=== PATIENT | male | born 1935 | race Caucasian/White ===

== ENCOUNTER 2016-09-26 10:58 | Emergency (ER) | payer OTHER ==
[~2016-09-26] VITALS: Ht 182.9 cm; Wt 147.4 kg
[~2016-09-26 10:58] MED LIST: ATENOLOL25 MG PO; HYDROCHLOROTHIA25 MG PO; ZESTRIL20 MG PO
[2016-09-26 15:05] VITALS: BP 181/79
== END 2016-09-26 15:05 | disposition home or self-care (01) ==
LOC: ED 10:58
DX: R60.0 Localized edema (principal); E66.9 Obesity, unspecified; I10 Essential (primary) hypertension; E78.5 Hyperlipidemia, unspecified; Z86.73 Personal history of transient ischemic attack (TIA), and cerebral infarction without residual deficits
CPT/HCPCS: Q0092

== ENCOUNTER 2016-12-09 08:31 | Emergency (ER) | payer OTHER ==
[~2016-12-09] VITALS: Ht 182.9 cm; Wt 143.3 kg
[2016-12-09 10:48] VITALS: BP 158/65
== END 2016-12-09 12:54 | disposition home or self-care (01) ==
LOC: ED 08:31
DX: L03.113 Cellulitis of right upper limb (principal); I10 Essential (primary) hypertension; Z86.73 Personal history of transient ischemic attack (TIA), and cerebral infarction without residual deficits
CPT/HCPCS: J3490; Q0092

== ENCOUNTER 2017-11-12 11:10 | Inpatient (IN) | payer OTHER ==
[~2017-11-12] VITALS: Ht 180.3 cm; Wt 147.4 kg
[2017-11-12 12:16] LABS: BASOPHIL % 1.1 % (0-2); PLATELET COUNT 230 x10^3mcL (130-400)
[2017-11-12 12:25] LABS: CALCIUM 9.2 mg/dL (8.5-10.1); CHLORIDE SERUM 102 mmol/L (98-107); CREATININE SERUM 1.7 mg/dL (0.7-1.3); GLUCOSE SERUM 118 mg/dL (74-106); SODIUM SERUM 138 mmol/L (136-145)
[2017-11-12 12:26] LABS: RED CELL DISTRIBUTION WIDTH 15.6 % (11.5-14.5)
[2017-11-12 12:29] LABS: ALKALINE PHOSPHATASE 118 U/L (46-116); ALT/SGPT 22 U/L (16-63); AST/SGOT 14 U/L (15-37); BILIRUBIN TOTAL 0.65 mg/dL (0.20-1.00); HDL CHOLESTEROL 40 mg/dL (40-60); LIPASE 209 IU/L (73-393); TOTAL PROTEIN, SERUM 7.7 g/dL (6.4-8.2); TRIGLYCERIDES 123 mg/dL (<150)
[2017-11-12 12:36] LABS: ALBUMIN 2.8 g/dL (3.4-5.0); CHOLESTEROL 214 mg/dL (<200); CHOLESTEROL/HDL RATIO 5.4
[2017-11-12] MEDS ORDERED: ALLOPURINOL100 MG PO (12:59)
[2017-11-12] MEDS ORDERED: HYDROCHLOROTHIA25 MG PO (12:59)
[2017-11-12] MEDS ORDERED: ATENOLOL25 MG PO (12:59)
[2017-11-12] MEDS ORDERED: METFORMIN HYDR500 M1 PO (13:00)
[2017-11-12] MEDS ORDERED: LOTENSIN40 MG PO (13:00)
[2017-11-12] MEDS ORDERED: TAMSULOSIN HYD0.4 M1 PO (13:00)
[2017-11-12 13:10] LABS: FREE T4 1.08 ng/dL (0.76-1.46); FREE THYROXINE INDEX 2.2 ug/dL (1.4-4.5)
[2017-11-12 14:02] LABS: T3 TOTAL 0.8 ng/mL
[2017-11-12 14:18] LABS: microscopic required? NO
[2017-11-12 14:39] VITALS: BP 139/61
[2017-11-12 14:42] LABS: urine erythrocyte NEGATIVE (NEGATIVE)
[2017-11-12 14:46] LABS: MAGNESIUM 2.5 mg/dL (1.8-2.4); PHOSPHOROUS 3.5 mg/dL (2.5-4.9)
[2017-11-12 18:24] VITALS: BP 150/58
[2017-11-12 21:30] VITALS: BP 165/68
[2017-11-12 22:30] VITALS: BP 143/67
[2017-11-13 05:47] VITALS: BP 147/64
[2017-11-13 06:25] LABS: BASOPHIL % 0.4 % (0-2); PLATELET COUNT 235 x10^3mcL (130-400)
[2017-11-13 06:30] LABS: RED CELL DISTRIBUTION WIDTH 15.8 % (11.5-14.5)
[2017-11-13 06:41] LABS: AMYLASE 43 U/L (25-115); CALCIUM 8.7 mg/dL (8.5-10.1); CARBON DIOXIDE 28.2 mmol/L (21-32); CHLORIDE SERUM 104 mmol/L (98-107); CREATININE SERUM 1.6 mg/dL (0.7-1.3); GLUCOSE SERUM 129 mg/dL (74-106); MAGNESIUM 2.2 mg/dL (1.8-2.4); PHOSPHOROUS 3.6 mg/dL (2.5-4.9); POTASSIUM SERUM 3.8 mmol/L (3.5-5.1); SODIUM SERUM 138 mmol/L (136-145)
[2017-11-13 08:29] LABS: AMPHETAMINE QUAL UR NONE DETECTED (See below)
[2017-11-13 08:58] VITALS: BP 143/61
[2017-11-13] MEDS ORDERED: LASIX20 MG PO (10:54)
[2017-11-13] MEDS ORDERED: BACTRIM1 TAB PO (10:54)
[2017-11-13 12:26] VITALS: BP 148/69
[2017-11-13 12:55] VITALS: BP 143/61
[2017-11-13 14:56] LABS: BASOPHIL % 0.2 % (0-2); PLATELET COUNT 257 x10^3mcL (130-400)
[2017-11-13 15:00] LABS: RED CELL DISTRIBUTION WIDTH 15.7 % (11.5-14.5)
[2017-11-13 15:04] LABS: CALCIUM 9.6 mg/dL (8.5-10.1); CARBON DIOXIDE 29.4 mmol/L (21-32); CHLORIDE SERUM 100 mmol/L (98-107); CREATININE SERUM 1.7 mg/dL (0.7-1.3); GLUCOSE SERUM 172 mg/dL (74-106); SODIUM SERUM 139 mmol/L (136-145)
[2017-11-15 09:31] VITALS: Ht 180.3 cm; Wt 147.4 kg
== END 2017-11-13 15:59 | disposition home or self-care (01) | DRG 602 ==
LOC: ED 11:10 → DU 13:03
PROVIDERS: Internal Medicine; Specialist
DX: L03.116 Cellulitis of left lower limb (principal); N17.0 Acute kidney failure with tubular necrosis; Z68.41 Body mass index [BMI] 40.0-44.9, adult; L03.115 Cellulitis of right lower limb; E11.9 Type 2 diabetes mellitus without complications; I10 Essential (primary) hypertension; E66.01 Morbid (severe) obesity due to excess calories; I87.8 Other specified disorders of veins; E78.5 Hyperlipidemia, unspecified; Z86.73 Personal history of transient ischemic attack (TIA), and cerebral infarction without residual deficits
CPT/HCPCS: 83880; 84439; J1940; J2543; Q0092

== ENCOUNTER 2018-07-01 08:48 | Inpatient (IN) | payer OTHER ==
[~2018-07-01] VITALS: Ht 180.3 cm; Wt 139.0 kg
[~2018-07-01 08:48] MED LIST changes: +ALLOPURINOL100 MG PO; +BACTRIM1 TAB PO; +LASIX20 MG PO; +LOTENSIN40 MG PO; +METFORMIN HYDR500 M1 PO; +TAMSULOSIN HYD0.4 M1 PO
[2018-07-01 10:50] LABS: BASOPHIL % 0.9 % (0-2); PLATELET COUNT 236 x10^3mcL (130-400)
[2018-07-01 10:54] LABS: RED CELL DISTRIBUTION WIDTH 16.4 % (11.5-14.5)
[2018-07-01 11:09] LABS: CALCIUM 8.9 mg/dL (8.5-10.1); CARBON DIOXIDE 29.2 mmol/L (21-32); CHLORIDE SERUM 106 mmol/L (98-107); GLUCOSE SERUM 98 mg/dL (74-106); POTASSIUM SERUM 5.2 mmol/L (3.5-5.1); SODIUM SERUM 140 mmol/L (136-145)
[2018-07-01 11:14] LABS: ALKALINE PHOSPHATASE 120 U/L (46-116); ALT/SGPT 19 U/L (16-63); AST/SGOT 16 U/L (15-37); BILIRUBIN TOTAL 0.3 mg/dL (0.20-1.00)
[2018-07-01 11:15] LABS: ALBUMIN 2.9 g/dL (3.4-5.0); TOTAL PROTEIN, SERUM 8.4 g/dL (6.4-8.2)
[2018-07-01 12:53] LABS: AMPHETAMINE QUAL UR NONE DETECTED (See below)
[2018-07-01] MEDS ORDERED: ATENOLOL25 MG PO (13:06)
[2018-07-01 14:13] VITALS: BP 158/56
[2018-07-01 16:42] VITALS: BP 141/72
[2018-07-01 19:15] VITALS: BP 164/51
[2018-07-02 05:51] VITALS: BP 111/46
[2018-07-02 06:43] LABS: BASOPHIL % 0.9 % (0-2); PLATELET COUNT 218 x10^3mcL (130-400)
[2018-07-02 06:50] LABS: RED CELL DISTRIBUTION WIDTH 15.6 % (11.5-14.5)
[2018-07-02 07:08] LABS: CALCIUM 9.2 mg/dL (8.5-10.1); CARBON DIOXIDE 26.7 mmol/L (21-32); CHLORIDE SERUM 107 mmol/L (98-107); CREATININE SERUM 1.7 mg/dL (0.7-1.3); GLUCOSE SERUM 121 mg/dL (74-106); POTASSIUM SERUM 4.6 mmol/L (3.5-5.1); SODIUM SERUM 142 mmol/L (136-145)
[2018-07-02 21:04] VITALS: BP 130/48
[2018-07-02 22:19] VITALS: BP 135/53
[2018-07-03 05:47] VITALS: BP 151/65
[2018-07-03 07:02] LABS: BASOPHIL % 0.5 % (0-2); PLATELET COUNT 225 x10^3mcL (130-400)
[2018-07-03 07:05] LABS: RED CELL DISTRIBUTION WIDTH 15.7 % (11.5-14.5)
[2018-07-03 07:11] LABS: CALCIUM 9.1 mg/dL (8.5-10.1); CHLORIDE SERUM 105 mmol/L (98-107); CREATININE SERUM 1.6 mg/dL (0.7-1.3); GLUCOSE SERUM 125 mg/dL (74-106); POTASSIUM SERUM 4.3 mmol/L (3.5-5.1); SODIUM SERUM 141 mmol/L (136-145)
[2018-07-03 09:45] VITALS: BP 159/60
[2018-07-03 16:47] VITALS: BP 125/65
[2018-07-03 21:27] VITALS: BP 149/50
[2018-07-03 22:58] VITALS: BP 150/61
[2018-07-04] VITALS (7 sets, daily range): BP systolic 113–155; BP diastolic 48–63
[2018-07-05 03:25] VITALS: BP 123/53
[2018-07-05 05:12] VITALS: BP 123/49
[2018-07-05 08:43] VITALS: BP 100/44
[2018-07-05 12:14] VITALS: BP 124/48
[2018-07-05 16:07] VITALS: BP 158/60
[2018-07-05 19:15] VITALS: BP 131/53
[2018-07-06 06:13] VITALS: BP 125/52
[2018-07-06 07:02] VITALS: BP 125/58
[2018-07-06 11:33] VITALS: BP 106/42
[2018-07-06 15:12] VITALS: BP 126/53
[2018-07-06 19:30] VITALS: BP 104/47
[2018-07-07 06:06] VITALS: BP 110/60
[2018-07-07 06:42] LABS: CALCIUM 8.4 mg/dL (8.5-10.1); CARBON DIOXIDE 28.9 mmol/L (21-32); CHLORIDE SERUM 102 mmol/L (98-107); CREATININE SERUM 2.8 mg/dL (0.7-1.3); GLUCOSE SERUM 134 mg/dL (74-106); POTASSIUM SERUM 3.3 mmol/L (3.5-5.1); SODIUM SERUM 138 mmol/L (136-145)
[2018-07-07 07:49] LABS: BASOPHIL % 0.4 % (0-2); PLATELET COUNT 245 x10^3mcL (130-400); RED CELL DISTRIBUTION WIDTH 15.9 % (11.5-14.5)
[2018-07-07 09:41] VITALS: BP 121/58
[2018-07-07 15:06] VITALS: BP 107/46
[2018-07-07 17:05] VITALS: BP 131/63
[2018-07-07 20:56] VITALS: BP 136/54
[2018-07-08 05:38] VITALS: BP 144/70
[2018-07-08 06:20] LABS: BASOPHIL % 0.3 % (0-2); PLATELET COUNT 284 x10^3mcL (130-400)
[2018-07-08 06:29] LABS: ALKALINE PHOSPHATASE 86 U/L (46-116); ALT/SGPT 32 U/L (16-63); AST/SGOT 79 U/L (15-37); BILIRUBIN TOTAL 1.5 mg/dL (0.20-1.00); CALCIUM 8.6 mg/dL (8.5-10.1); CARBON DIOXIDE 27.7 mmol/L (21-32); CHLORIDE SERUM 103 mmol/L (98-107); CREATININE SERUM 2.5 mg/dL (0.7-1.3); GLUCOSE SERUM 142 mg/dL (74-106); MAGNESIUM 2.7 mg/dL (1.8-2.4); PHOSPHOROUS 3.6 mg/dL (2.5-4.9); POTASSIUM SERUM 3.5 mmol/L (3.5-5.1); SODIUM SERUM 141 mmol/L (136-145); TOTAL PROTEIN, SERUM 7.3 g/dL (6.4-8.2)
[2018-07-08 07:05] LABS: ALBUMIN 1.6 g/dL (3.4-5.0)
[2018-07-08 07:17] LABS: RED CELL DISTRIBUTION WIDTH 15.9 % (11.5-14.5)
[2018-07-08 09:23] VITALS: BP 159/60
[2018-07-08 12:50] VITALS: BP 134/61
[2018-07-08 17:17] VITALS: BP 142/53
[2018-07-08 22:16] VITALS: BP 133/54
[2018-07-09 05:47] VITALS: BP 146/46
[2018-07-09 08:08] LABS: ALKALINE PHOSPHATASE 93 U/L (46-116); ALT/SGPT 30 U/L (16-63); AST/SGOT 56 U/L (15-37); BILIRUBIN TOTAL 2.31 mg/dL (0.20-1.00); CALCIUM 8.8 mg/dL (8.5-10.1); CHLORIDE SERUM 106 mmol/L (98-107); CREATININE SERUM 2.1 mg/dL (0.7-1.3); GLUCOSE SERUM 149 mg/dL (74-106); POTASSIUM SERUM 3.6 mmol/L (3.5-5.1); SODIUM SERUM 143 mmol/L (136-145); TOTAL PROTEIN, SERUM 7.4 g/dL (6.4-8.2)
[2018-07-09 08:09] LABS: ALBUMIN 1.5 g/dL (3.4-5.0)
[2018-07-09 09:23] VITALS: BP 129/49
[2018-07-09 12:35] VITALS: BP 110/50
[2018-07-09 16:30] VITALS: BP 141/55
[2018-07-10 05:35] VITALS: BP 130/52
[2018-07-10 06:49] LABS: ALKALINE PHOSPHATASE 93 U/L (46-116); ALT/SGPT 28 U/L (16-63); AST/SGOT 39 U/L (15-37); BILIRUBIN TOTAL 2.4 mg/dL (0.20-1.00); CALCIUM 8.7 mg/dL (8.5-10.1); CARBON DIOXIDE 23.3 mmol/L (21-32); CHLORIDE SERUM 104 mmol/L (98-107); CREATININE SERUM 2.2 mg/dL (0.7-1.3); GLUCOSE SERUM 144 mg/dL (74-106); PHOSPHOROUS 3.4 mg/dL (2.5-4.9); POTASSIUM SERUM 3.3 mmol/L (3.5-5.1); SODIUM SERUM 143 mmol/L (136-145); TOTAL PROTEIN, SERUM 6.9 g/dL (6.4-8.2); URIC ACID 8.6 mg/dL (3.5-7.2)
[2018-07-10 06:54] LABS: ALBUMIN 1.3 g/dL (3.4-5.0)
[2018-07-10 07:47] LABS: BASOPHIL % 0.5 % (0-2); PLATELET COUNT 339 x10^3mcL (130-400)
[2018-07-10 07:48] LABS: RED CELL DISTRIBUTION WIDTH 16.2 % (11.5-14.5)
[2018-07-10 09:24] VITALS: BP 127/46
[2018-07-10 13:27] VITALS: BP 128/56
[2018-07-10 13:53] VITALS: BP 128/56
[2018-07-10] MEDS ORDERED: AMERINET CHOICE1 PD3 IV (13:57)
[2018-07-10] MEDS ORDERED: AMERINET CHOICE1 G1 IV (13:58)
[2018-07-10] MEDS ORDERED: COLCHICINE0.6 M1 PO (14:06)
[2018-07-10] MEDS ORDERED: NOR5 PO (14:07)
[2018-07-10 17:00] VITALS: BP 133/70
== END 2018-07-10 22:10 | DRG 603 ==
LOC: ED 08:48 → DU 12:53 → MU 12:53 → DU 07-04 18:13
PROVIDERS: Emergency Medicine; Internal Medicine; ADMIT Internal Medicine
DX: L03.115 Cellulitis of right lower limb (principal); N17.9 Acute kidney failure, unspecified; E44.0 Moderate protein-calorie malnutrition; N18.4 Chronic kidney disease, stage 4 (severe); L03.116 Cellulitis of left lower limb; I87.2 Venous insufficiency (chronic) (peripheral); B95.62 Methicillin resistant Staphylococcus aureus infection as the cause of diseases classified elsewhere; B96.5 Pseudomonas (aeruginosa) (mallei) (pseudomallei) as the cause of diseases classified elsewhere; I12.9 Hypertensive chronic kidney disease with stage 1 through stage 4 chronic kidney disease, or unspecified chronic kidney disease; E11.22 Type 2 diabetes mellitus with diabetic chronic kidney disease; E11.65 Type 2 diabetes mellitus with hyperglycemia; M10.9 Gout, unspecified; Z86.73 Personal history of transient ischemic attack (TIA), and cerebral infarction without residual deficits; Z87.891 Personal history of nicotine dependence; Z79.4 Long term (current) use of insulin
CPT/HCPCS: 82962; 83880; 97110-GP; 97116-GP; 97530-GP; J0696; J1650; J1940; J2270; J2405; J2543; J3370; J3490; J7030; J7040; Q0092